=== PATIENT | female | born 1935 | race Caucasian/White ===

== ENCOUNTER 2020-07-27 09:05 | Day surgery (SDC) | payer MEDICARE, OTHER ==
[~2020-07-27] VITALS: Ht 152.4 cm; Wt 61.8 kg
[2020-07-27] MEDS ORDERED: CHOL100025 PO (09:34)
[2020-07-27] MEDS ORDERED: ASPI-1265 PO (09:34)
[2020-07-27] MEDS ORDERED: LEVO125T PO (09:34)
[2020-07-27] MEDS ORDERED: METF-950 PO (09:34)
[2020-07-27] MEDS ORDERED: ASCO500C17 PO (09:34)
[2020-07-27] MEDS ORDERED: ZINC220C11 PO (09:34)
[2020-07-27] MEDS ORDERED: PREG50CA64 PO (09:34)
[2020-07-27] MEDS ORDERED: LOSA50TA64 PO (09:34)
[2020-07-27] MEDS ORDERED: normal saline 1000ml 1,000 ML IV SCH ×2 (09:35→11:40)
[2020-07-27] MEDS ORDERED: vancomycin/NS 1 GM ADD-VANTAGE 250 ML X 1 DOSE IV ONE (09:35)
[2020-07-27] MEDS ORDERED: ceFAZolin 2gm in dextrose, iso 50 ML IV ONE ×2 (09:35→10:07)
[2020-07-27 09:50] LABS: BASOPHILS % (AUTO) 0.8 % (0-1); EOSINOPHILS # (AUTO) 0.1 X10'3 (0-0.9); HEMATOCRIT 43.2 % (35.0-45.0); HEMOGLOBIN 14.4 g/dl (12.0-16.0); LYMPHOCYTES % (AUTO) 49.9 % (21-51); MEAN CORPUSCULAR HEMOGLOBIN 29.4 PG (27.0-31.0); MEAN CORPUSCULAR HGB CONC 33.3 g/dL (33.0-36.5); MEAN CORPUSCULAR VOLUME 88.3 FL (78-98); MEAN PLATELET VOLUME 8.9 FL (7.4-10.4); MONOCYTES # (AUTO) 0.5 X10'3 (0-0.9); MONOCYTES % (AUTO) 7.7 % (2-12); NEUTROPHILS # (AUTO) 2.4 X10'3 (1.8-7.7); NEUTROPHILS % (AUTO) 40.6 % (42-75); PLATELET COUNT 258 X10'3 (140-440); RED CELL DISTRIBUTION WIDTH 13.8 % (11.5-14.5)
[2020-07-27 09:57] LABS: ALBUMIN 4.1 G/DL (3.4-5.0); ANION GAP 9 (8-16); BLOOD UREA NITROGEN 20 MG/DL (7-18); BUN/CREATININE RATIO 22.5 (6.6-38.0); CALCIUM 10.1 MG/DL (8.5-10.1); CHLORIDE 101 MMOL/L (99-107); CREATININE 0.89 MG/DL (0.40-0.90); GLUCOSE 87 MG/DL (70-104); MAGNESIUM 1.5 MG/DL (1.5-2.4); POTASSIUM 4.2 MMOL/L (3.5-5.1); SODIUM 141 MMOL/L (135-145); TOTAL CARBON DIOXIDE 30.7 MMOL/L (24-32); eGFR 60 ML/MIN
[2020-07-27 10:06] VITALS: BP 173/78
[2020-07-27] MEDS ORDERED: midazolam 2 mg/2 ml injection ONE ×2 (10:07→10:45)
[2020-07-27] MEDS ORDERED: fentaNYL/PF 50MCG/1 ML 2ML syringe ONE ×2 (10:07→10:45)
[2020-07-27] MEDS ORDERED: ceFAZolin 1000mg inj ONE (10:08)
[2020-07-27] MEDS ORDERED: LIDOcaine 1% W/epiNEPHrine 1:100,000 20ml vial ONE (10:08)
[2020-07-27] MEDS ORDERED: vancomycin 1,000mg inj ONE (10:46)
[2020-07-27 11:28] VITALS: BP 143/92
[2020-07-27 11:45] VITALS: BP 99/50
[2020-07-27 12:00] VITALS: BP 86/36
[2020-07-27 12:15] VITALS: BP 92/52
[2020-07-27 12:30] VITALS: BP 98/58
== END 2020-07-27 13:00 | disposition home or self-care (01) ==
LOC: SSTAY O 09:05
PROVIDERS: ATTEND Internal Medicine Cardiovascular Disease
DX: Z45.010 Encounter for checking and testing of cardiac pacemaker pulse generator [battery] (principal); I44.2 Atrioventricular block, complete; I10 Essential (primary) hypertension; E11.9 Type 2 diabetes mellitus without complications; I49.5 Sick sinus syndrome; E03.9 Hypothyroidism, unspecified; Z98.890 Other specified postprocedural states; Z79.899 Other long term (current) drug therapy; Z96.659 Presence of unspecified artificial knee joint; Z88.2 Allergy status to sulfonamides; Z88.1 Allergy status to other antibiotic agents
CPT/HCPCS: 33228; 36415; 80048; 82948; 83735; 85025; 85610; 93005; 99152; 99153; C1785; J0690; J2250; J3010; J3370; A4620; A6449

== ENCOUNTER 2021-09-26 05:17 | Inpatient (IN) | payer MEDICARE, OTHER ==
[~2021-09-26] VITALS: Ht 152.4 cm; Wt 63.6 kg
[~2021-09-26 05:17] MED LIST: ASCO500C17 PO; ASPI-1265 PO; CHOL100025 PO; LEVO125T PO; LOSA50TA64 PO; METF-1203 PO; PREG50CA64 PO; ZINC220C11 PO
[2021-09-26] MEDS ORDERED: dexamethasone sod phosphate 10mg/ml inj IV STA (05:55)
[2021-09-26 06:15] LABS: ABG BASE EXCESS -4.6 mmol/L (-2.0-2.0); ABG HCO3 20.2 mmol/L (22.0-26.0); ABG OXYGEN SATURATION 99.2 % (94-97); ABG PCO2 (T) 37.2 mmHg (32.0-45.0); ABG PO2 (T) 301.4 mmHg (75.0-100.0); ALLEN'S TEST POSITIVE; FCOHb 0.3 % (0.0-3.9); FMetHb 0.2 % (0.0-1.5); FO2Hb 98.7 % (94-97); PATIENT TEMPERATURE 37.9; TOTAL HEMOGLOBIN 9.4 G/dl (12.0-16.0)
[2021-09-26 06:42] LABS: HEMOGLOBIN 8.5 g/dl (12.0-16.0)
[2021-09-26 06:45] LABS: HEMATOCRIT 26.1 % (35.0-45.0); MEAN CORPUSCULAR HEMOGLOBIN 28.7 PG (27.0-31.0); MEAN CORPUSCULAR HGB CONC 32.4 g/dL (33.0-36.5); MEAN CORPUSCULAR VOLUME 88.6 FL (78-98); MEAN PLATELET VOLUME 8.6 FL (7.4-10.4); RED BLOOD COUNT 2.95 X10'6 (4.20-5.60); RED CELL DISTRIBUTION WIDTH 18.4 % (11.5-14.5)
[2021-09-26 07:00] LABS: ALANINE AMINOTRANSFERASE 25 U/L (12-78); ALBUMIN 2.3 G/DL (3.4-5.0); ALBUMIN/GLOBULIN RATIO 0.5 (1.1-1.5); ALKALINE PHOSPHATASE 123 IU/L (46-116); ANION GAP 14 (8-16); APTT 22 SECONDS (22-32); ASPARTATE AMINO TRANSFERASE 33 U/L (10-37); BILIRUBIN,TOTAL 0.7 MG/DL (0.1-1.0); BLOOD UREA NITROGEN 98 MG/DL (7-18); BUN/CREATININE RATIO 31.8 (6.6-38.0); CALCIUM 8.3 MG/DL (8.5-10.1); CHLORIDE 99 MMOL/L (99-107); CREATININE 3.08 MG/DL (0.40-0.90); D-DIMER 29.19 MG/L FEU (0-0.50); POTASSIUM 5.4 MMOL/L (3.5-5.1); SODIUM 135 MMOL/L (135-145); TOTAL CARBON DIOXIDE 22.2 MMOL/L (24-32); TOTAL PROTEIN 6.5 G/DL (6.4-8.2); eGFR 14 ML/MIN
--- NOTE | 2021-09-26 07:05 | NUR ---
Dr Rey at bedside speaking with son as requested by MD. BP 85/33, HR 94, RR 23, SPO2 96 % on 4L NC. to enter orders for IVF.
[2021-09-26 07:12] LABS: GLUCOSE 184 MG/DL (70-104)
--- NOTE | 2021-09-26 07:23 | NUR ---
DR URIBE MADE AWARE OF BP 74/42. TO ENTER ORDERS.
[2021-09-26] MEDS ORDERED: ringers solution, lacted 1,000 ML IV ONE (07:25)
[2021-09-26 07:29] LABS: WHITE BLOOD COUNT 87.3 X10'3 (4.5-11.0)
[2021-09-26 07:30] LABS: PLATELET COUNT 25 X10'3 (140-440)
[2021-09-26 08:15] LABS: CLARITY,URINE SLIGHTLY CLOUDY (Clear); COLOR,URINE YELLOW (Yellow); GLUCOSE, URINE NEGATIVE (Neg); KETONES,URINE NEGATIVE (Neg); LEUKOCYTE ESTERASE ,URINE NEGATIVE (Neg); NITRITES, URINE NEGATIVE (Neg); OCCULT BLOOD,URINE NEGATIVE (Neg); PROTEIN,URINE 30 mg/dl (Neg); UROBILINOGEN,URINE 0.2 E.U/dL (0.2-1.0)
[2021-09-26 08:18] LABS: PLATELET ESTIMATE DECREASED; POIKILOCYTOSIS FEW; TOTAL CELLS COUNTED 100
[2021-09-26 08:19] LABS: ANISOCYTOSIS 2+
[2021-09-26 08:26] LABS: UA COLLECTION TYPE FOLEY CATH
[2021-09-26 08:27] LABS: AMORPHOUS URATES 1+; BACTERIA,URINE NONE SEEN /HPF (Neg); MUCUS STRANDS FEW /LPF (Neg); RBC,URINE 0-2 /HPF (0-2); SQUAMOUS EPITHELIAL CELL,UR FEW /LPF (FEW); WBC,URINE 0-4 /HPF (0-4)
[2021-09-26] MEDS ORDERED: acetaminophen 325mg tablet PO ONE (10:35)
[2021-09-26] MEDS ORDERED: CefTRIAXone 2gm/D5W 50ml BAG 50 ML IV SCH (10:50)
[2021-09-26] MEDS ORDERED: acetaminophen 650mg rectal suppository RC ONE (10:50)
[2021-09-26] MEDS ORDERED: PREG50CA64 PO (12:53)
[2021-09-26] MEDS ORDERED: DICL100T85 PO (13:15)
[2021-09-26] MEDS ORDERED: NIRM1TAB PO (13:52)
[2021-09-26] MEDS ORDERED: LOSA50TA64 PO (13:52)
[2021-09-26] MEDS ORDERED: DICL75TA5 PO (13:53)
[2021-09-26] MEDS ORDERED: LORazepam 2 mg/ml vial IV PRN (13:55)
[2021-09-26] MEDS ORDERED: morphine 10mg/ml inj. IV PRN (13:55)
[2021-09-26] MEDS ORDERED: acetaminophen 325mg tablet PO PRN (13:55)
--- NOTE | 2021-09-26 15:50 | NUR ---
received report from perlita jensen in ed
--- NOTE | 2021-09-26 16:21 | NUR ---
pt is requesting to have 02, placing 2 L NC in mouth
[2021-09-26] MEDS: morphine 10mg/0.5ml (conc. morphine) oral syringe PO PRN ×3 (16:28→20:41)
[2021-09-26 16:33] VITALS: BP 82/41
[2021-09-26] MEDS ORDERED: Chloraseptic (Phenol) Spray 177ml MM PRN (16:45)
--- NOTE | 2021-09-26 18:12 | NUR ---
gave report to perlita garcía
--- NOTE | 2021-09-26 23:06 | NUR ---
RN IS TO DOCUMENT YES TO ALL APPLICABLE AREAS Pronouncement of : 1. Time Physician Notified:[id number] 2. Date of :09/26/21 3. Time of : 2135 4. DNR/Withdraw life support documented:yes 5. Monitor strip has been placed on chart:yes 6. Assessment process is of one-minute duration and includes following criteria: a) Patient is unresponsive to all stimuli: yes b) Pupils fixed and non-reactive:yes c) Auscultation of precordium reveals absence of heart tones:yes d) Auscultation of lungs reveals absence of breath sounds:yes e) Absence of blood pressure / all vital signs:yes f) QRS complexes are not present on monitor / EKG strip:yes g) Pacer spikes without capture:yes 4. Comments:family arrived right after patient and took all her belongings home. pt was sent to [id number]. Donor network notified and notified me that pt is not qualify for donor.
[2021-09-27] MEDS ORDERED: CefTRIAXone 2gm/D5W 50ml BAG 50 ML IV SCH (08:00)
== END 2021-09-26 22:40 | DRG 871 ==
LOC: ER 05:17 → ED HOLD 14:04 → ORTHO 4S 16:14
PROVIDERS: ADMIT Family Medicine; ATTEND Family Medicine
DX: A41.9 Sepsis, unspecified organism (principal); U07.1 COVID-19; J12.82 Pneumonia due to coronavirus disease 2019; J96.01 Acute respiratory failure with hypoxia; C93.90 Monocytic leukemia, unspecified, not having achieved remission; I24.8 Other forms of acute ischemic heart disease; N17.9 Acute kidney failure, unspecified; I95.9 Hypotension, unspecified; E03.9 Hypothyroidism, unspecified; E11.9 Type 2 diabetes mellitus without complications; E87.5 Hyperkalemia; I11.0 Hypertensive heart disease with heart failure; I50.9 Heart failure, unspecified; Z88.2 Allergy status to sulfonamides; Z51.5 Encounter for palliative care
CPT/HCPCS: 36415; 36600; 71045; 80053; 81001; 82803; 82948; 83605; 83880; 84145; 84484; 85007; 85018; 85025; 85379; 85610; 85730; 87040; 87635; 93005; 96361; 96365; 96375; 99285; C9803; G0378; J0696; J1100; J7120